=== PATIENT | female | born 1935 | race Caucasian/White ===

== ENCOUNTER 2016-07-10 11:06 | Emergency (ER) | payer MEDICARE, BC ==
[2016-07-10] MEDS ORDERED: Ketorolac 60 MG/2 ML SDV IM ONE (11:25)
--- NOTE | 2016-07-10 11:30 | EDM.PDOC ---
ED HPI Trauma - General Chief Complaint: Upper Extremity Injury/Pain Stated Complaint: BROKEN WRIST Time Seen by Provider: 07/10/16 11:20 Source: Reports: Patient, Family History Limitations: Reports: No limitations - History of Present Illness INITIAL COMMENTS - FREE TEXT/NARRATIVE: History of present illness: [81-year-old female presenting with acute onset wrist pain secondary to mechanical fall while attempting to walk on treadmill and connect her oxygen. Indicates that when she fell she struck her wrist at an extreme angle and subsequently felt pain in that wrist.] Review of systems: As per history of present illness and below otherwise all systems reviewed and negative. Past medical history: As per history of present illness and as reviewed below otherwise noncontributory. Surgical history: As per history of present illness and as reviewed below otherwise noncontributory. Social history: No reported history of drug or alcohol abuse. Family history: As per history of present illness and as reviewed below otherwise noncontributory. Physical exam: HEENT: Atraumatic, normocephalic, pupils reactive, negative for conjunctival pallor or scleral icterus, mucous membranes moist, throat clear, neck supple, nontender, trachea midline. Lungs: Clear to auscultation, breath sounds equal bilaterally, chest nontender. Heart: S1S2, regular, negative for clicks, rubs, or JVD. Abdomen: Soft, nondistended, nontender. Negative for masses or hepatosplenomegaly. Negative for costovertebral tenderness. Pelvis: Stable nontender. Genitourinary: Deferred. Rectal: Deferred. Extremities: Left forearm and wrist with slight deformity and edema noted, negative for cords or calf pain. Neurovascular unremarkable. Neuro: Awake, alert, oriented. Cranial nerves II through XII unremarkable. Cerebellum unremarkable. Motor and sensory unremarkable throughout. Exam nonfocal. Orthopedics consulted and the bedside to approximate the fracture and stabilize for followup outpatient. Diagnostics: [X. her forearm and wrist] Therapeutics: [] Impression: [Fracture the distal radial] Plan: [Ortho here and said arm with Ortho-Glass placed and followup planned with them by them as well as pain management] Definitive disposition and diagnosis as appropriate pending reevaluation and review of above. Allergies/ADRs: Allergies brimonidine tartrate [From Alphagan P] Allergy (Unverified 07/10/16 11:39) Redness Patient can't verify. potassium clavulanate [From Augmentin] Allergy (Unverified 07/10/16 11:39) Rash Patient can't recall the medicines she's allergic to. (07/10/16) Home Medications: Ambulatory Orders Furosemide 40 mg PO BID 06/10/15 [Confirmed 07/10/16] Lisinopril 40 mg PO DAILY 06/10/15 [Confirmed 07/10/16] Metoprolol Tartrate [Lopressor] 50 mg PO BID 06/10/15 [Confirmed 07/10/16] Multivit-Min/FA/Lycopene/Lut [Centrum Silver Tablet] 1 tab PO DAILY 06/10/15 [ Confirmed 07/10/16] Potassium Chloride 20 meq DAILY 06/10/15 [Confirmed 06/10/15] Rosuvastatin [Crestor] 20 mg PO BEDTIME 06/10/15 [Confirmed 07/10/16] Sertraline [Zoloft] 50 mg PO DAILY 06/10/15 [Confirmed 07/10/16] Spironolactone [Aldactone] 25 mg PO DAILY 06/10/15 [Confirmed 07/10/16] Warfarin [Coumadin] 2.5 mg PO SUMOWETHFRSA@1800 06/10/15 [Confirmed 07/10/16] Warfarin [Coumadin] 3.75 mg PO TU@1800 06/10/15 [Confirmed 07/10/16] cycloSPORINE [Cyclosporine] 1 drop EYEBOTH Q12H 06/10/15 [Confirmed 07/10/16] Acetaminophen/HYDROcodone [[place] 325-5 MG] 1 - 2 tab PO Q4H PRN #60 tablet 07/10 Amoxicillin [IMW: Amoxicillin] 2,000 mg PO ONETIME PRN 07/10/16 [Confirmed 07/10] Latanoprost [Xalatan 0.005% Ophth Soln] 1 drop EYEBOTH BEDTIME 07/10/16 [ Confirmed 07/10/16] Spironolactone [Aldactone] 25 mg PO DAILY 07/10/16 [Confirmed 07/10/16] Past Medical History Cardiovascular History: Reports: Heart Failure, Heart valve replacement, High cholesterol, Hypertension, Pulmonary hypertension, Stents Respiratory History: Reports: Bronchitis, recurrent, SOB Gastrointestinal History: Reports: GI bleed 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) Other OB/BYN History: total hysterectomy Musculoskeletal History: Reports: Fracture, Osteoarthritis Neurological History: Reports: None Psychiatric History: Reports: Depression Endocrine/Metabolic History: Reports: Diabetes, type II Hematologic History: Reports: None Immunologic History: Reports: None Oncologic (Cancer) History: Reports: None - Past Surgical History Head Surgeries/Procedures: Reports: None HEENT Surgical History: Reports: Cataract surgery, Eye surgery, Naso-sinus surgery Other HEENT Surgeries/Procedures: bilateral corneal transplants Cardiovascular Surgical History: Reports: Coronary artery bypass, Pacer, Valve replacement GI Surgical History: Reports: Colonoscopy, Polypectomy, Other (see below) Other GI Surgeries/Procedures: endoscopy with clip placement Female Surgical History: Reports: Hysterectomy, Salpingo-oophorectomy Musculoskeletal Surgical History: Reports: Carpal tunnel, Other (see below) Other Musculoskeletal Surgeries/Procedures:: anklr fx surgery Social & Family History - Tobacco Use Smoking Status *Q: Never Smoker Second Hand Smoke Exposure: No - Recreational Drug Use Recreational Drug Use: No Review of Systems - Review of Systems Review Of Systems: See Below (See history of present illness) Trauma Exam - Physical Exam Exam: See Below (See history of present illness) Course - Vital Signs Last Recorded V/S: Last Vital Signs Temp 36.6 C 07/10/16 11:17 Pulse 77 07/10/16 11:17 Resp 20 07/10/16 11:17 BP 167/79 H 07/10/16 11:17 Pulse Ox 96 07/10/16 11:17 - Orders/Labs/Meds Orders: Active Orders 24 hr Category Date Time Status Ready for Discharge [RC] PER UNIT ROUTINE Care 07/10/16 13:15 Active Meds: Medications Discontinued Medications Generic Name Dose Route Start Last Admin Trade Name Irina PRN Reason Stop Dose Admin Ketorolac Tromethamine 60 mg 07/10/16 11:25 07/10/16 11:41 Toradol IM 07/10/16 11:26 60 mg ONETIME ONE Administration Lidocaine HCl 20 ml 07/10/16 12:29 07/10/16 12:37 Xylocaine 1% INJECT 07/10/16 12:30 20 ml ONETIME ONE Administration Departure - Departure Time of Disposition: 13:20 Disposition: Home, Self-Care 01 Condition: good Clinical Impression: Radial head fracture, closed Prescriptions: Acetaminophen/HYDROcodone [[place] 325-5 MG] 1 - 2 tab PO Q4H PRN #60 tablet PRN Reason: Pain Referrals: Rober Caballero PA-C [Physician Preschool Aide] - 07/14/16 9:30 am (If you have questions or concerns prior to your follow-up appointment, please call Dr. Desir 's office. If questions or concerns arise over the weekend, please return to the ED. ) Forms: ED Department Discharge Additional Instructions: The following information is given to patients seen in the emergency department who are being discharged to home. This information is to outline your options for follow-up care. We provide all patients seen in our emergency department with a follow-up referral. The need for follow-up, as well as the timing and circumstances, are variable depending upon the specifics of your emergency department visit. If you don't have a primary care physician on staff, we will provide you with a referral. We always advise you to contact your personal physician following an emergency department visit to inform them of the circumstance of the visit and for follow-up with them and/or the need for any referrals to a consulting specialist. The emergency department will also refer you to a specialist when appropriate. This referral assures that you have the opportunity for follow-up care with a specialist. All of these measure are taken in an effort to provide you with optimal care, which includes your follow-up. Under all circumstances we always encourage you to contact your private physician who remains a resource for coordinating your care. When calling for follow-up care, please make the office aware that this follow-up is from your recent emergency room visit. If for any reason you are refused follow-up, please contact the [facility] Emergency Department at and asked to speak to the emergency department charge nurse. Take medication as directed Followup with orthopedics as arty established with them Return to ED as needed as discussed
--- NOTE | 2016-07-10 11:50 | CR ---
EXAMINATION: Left hand and left forearm HISTORY: Pain COMPARISON: None TECHNIQUE: 2 views of the left hand and 2 views of the left forearm FINDINGS: There is a comminuted impacted distal left radius fracture identified with moderate apex v olar angulation. The carpal alignment appears preserved. There is an adjacent mildly displaced ulnar styloid fracture. Bone mineralization appears mildly osteopenic. No elbow joint effusion. IMPRESSION: 1. Comminuted and moderately displaced and impacted distal left radius fracture. 2. Although metastatic fracture.
[2016-07-10] MEDS ORDERED: Lidocaine 1% 20 ML MDV INJECT ONE (12:29)
--- NOTE | 2016-07-10 12:34 | PCM.CONS ---
H&P History of Present Illness - General Date of Service: 07/10/16 Admit Problem/Dx: left displaced distal radius fracture, ulnar styloid fracture History Limitations: Reports: No limitations - History of Present Illness Initial Comments - Free Text/Narative: Patient is an 81-year-old right hand dominant female who presented to the ER earlier today with complaint of left wrist pain. She had been walking on her treadmill and while trying to place her nasal cannula, had a fall onto her left upper extremity. She had immediate pain and deformity. She has a history of left carpal tunnel syndrome, s/p open carpal tunnel release, but no previous history of left wrist fracture. She is in her usual state of health today. She did not striker her head or lose consciousness. She denies distal paralysis and paresthesias. Onset of Symptoms: Reports: today Location: Reports: lower extremity, left Quality: Reports: Stabbing Improves with: Reports: Immobilization Worsens with: Reports: Movement Context: Reports: activity/exercise, trauma Associated Symptoms: Reports: no other symptoms left forearm, wrist Pain Score (Numeric/FACES): 10 - Related Data Allergies/Adverse Reactions: Allergies Allergy/AdvReac Type Severity Reaction Status Date / Time brimonidine tartrate Allergy Redness Unverified 07/10/16 11:39 [From Alphagan P] potassium clavulanate Allergy Rash Unverified 07/10/16 11:39 [From Augmentin] Home Medications: Home Meds Furosemide 40 mg PO BID 06/10/15 [History] Lisinopril 40 mg PO DAILY 06/10/15 [History] Metoprolol Tartrate [Lopressor] 50 mg PO BID 06/10/15 [History] Multivit-Min/FA/Lycopene/Lut [Centrum Silver Tablet] 1 tab PO DAILY 06/10/15 [ History] Potassium Chloride 20 meq DAILY 06/10/15 [History] Rosuvastatin [Crestor] 20 mg PO BEDTIME 06/10/15 [History] Sertraline [Zoloft] 50 mg PO DAILY 06/10/15 [History] Spironolactone [Aldactone] 25 mg PO DAILY 06/10/15 [History] Warfarin [Coumadin] 2.5 mg PO SUMOWETHFRSA@1800 06/10/15 [History] Warfarin [Coumadin] 3.75 mg PO TU@1800 06/10/15 [History] cycloSPORINE [Cyclosporine] 1 drop EYEBOTH Q12H 06/10/15 [History] Amoxicillin [IMW: Amoxicillin] 2,000 mg PO ONETIME PRN 07/10/16 [History] Latanoprost [Xalatan 0.005% Ophth Soln] 1 drop EYEBOTH BEDTIME 07/10/16 [History ] Spironolactone [Aldactone] 25 mg PO DAILY 07/10/16 [History] Past Medical History HEENT History: Reports: Hard of hearing, Impaired vision Cardiovascular History: Reports: Heart Failure, Heart valve replacement, High cholesterol, Hypertension, Pulmonary hypertension, Stents Respiratory History: Reports: Bronchitis, recurrent, SOB Gastrointestinal History: Reports: GI bleed 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) Other OB/BYN History: total hysterectomy Musculoskeletal History: Reports: Fracture, Osteoarthritis Neurological History: Reports: None Psychiatric History: Reports: Depression Endocrine/Metabolic History: Reports: Diabetes, type II Hematologic History: Reports: None Immunologic History: Reports: None Oncologic (Cancer) History: Reports: None - Past Surgical History Head Surgeries/Procedures: Reports: None HEENT Surgical History: Reports: Cataract surgery, Eye surgery, Naso-sinus surgery Other HEENT Surgeries/Procedures: bilateral corneal transplants Cardiovascular Surgical History: Reports: Coronary artery bypass, Pacer, Valve replacement GI Surgical History: Reports: Colonoscopy, Polypectomy, Other (see below) Other GI Surgeries/Procedures: endoscopy with clip placement Female Surgical History: Reports: Hysterectomy, Salpingo-oophorectomy Musculoskeletal Surgical History: Reports: Carpal tunnel, Other (see below) Other Musculoskeletal Surgeries/Procedures:: anklr fx surgery Social & Family History - Family History Family Medical History: Noncontributory - Tobacco Use Smoking Status *Q: Never Smoker Second Hand Smoke Exposure: No - Caffeine Use Caffeine Use: Reports: Coffee, Tea - Recreational Drug Use Recreational Drug Use: No H&P Review of Systems - Review of Systems: Review Of Systems: See Below General: Reports: no symptoms. Denies: fever, chills, malaise HEENT: Reports: no symptoms Pulmonary: Reports: No Symptoms. Denies: Shortness of Breath, Cough Cardiovascular: Reports: no symptoms. Denies: chest pain, palpitations Gastrointestinal: Reports: No symptoms Genitourinary: Reports: no symptoms Musculoskeletal: Reports: arm pain Skin: Reports: no symptoms Psychiatric: Reports: no symptoms Neurological: Reports: No Symptoms Hematologic/Lymphatic: Reports: no symptoms Immunologic: Reports: no symptoms Exam - Exam Exam: See Below - Vital Signs Vital Signs: Last Vital Signs Temp 97.8 F 07/10/16 11:17 Pulse 77 07/10/16 11:17 Resp 20 07/10/16 11:17 BP 167/79 H 07/10/16 11:17 Pulse Ox 96 07/10/16 11:17 Weight: 85.4 kg - Exam Quality Assessment: supplemental oxygen General: alert, oriented HEENT: Conjunctiva clear, Mucosa moist & pink, Nares patent, Pupils equal Neck: supple Cardiovascular: regular rate, regular rhythm Extremities: other (LUE with dorsal deformity of distal forearm/wrist. ecchymosis to the ulnar/volar aspect of the wrist, FROM at L elbow. ROM at L wrist deferred due to x-ray findings. AIN, PIN, ulnar motor intact, radial/ulnar /median sensation intact, radial pulse 2+. ) Skin: warm, dry, intact - Patient Data Imaging Impressions last 24 hrs: 3V of L hand and 2V of L forearm done in ED reveal displaced distal radius fracture and ulnar styloid fracture. Consult PN Assessment/Plan Procedures: Procedures COMPLETE CBC W/AUTO DIFF WBC (06/10/15) EMERGENCY DEPT VISIT (06/10/15) LIPID PANEL (11/20/15) OCCULT BLD FECES 1-3 TESTS (06/10/15) PROTHROMBIN TIME (06/10/15) ROUTINE VENIPUNCTURE (11/20/15) X-RAY EXAM OF ABDOMEN (06/10/15) Problem List Initiated/Reviewed/Updated: Yes Plan: assessment: L distal radius fracture, displaced L ulnar styloid fracture Patient's x-rays were reviewed with Dr. Earle Desir. She recommends closed reduction prior to discharge from the ED. X-ray findings were discussed with the patient and her . Recommendation for closed reduction left distal radius was discussed. Patient agreed to proceed. Informed consent was obtained. The fracture step-off was identified. Approximately 6mL of 1% lidocaine was administered at the fracture site. Flash of blood was noted with aspiration. After adequate anesthesia was obtained, traction was held and the fracture was reduced without difficulty. A clunk was appreciated. Patient did note improved pain after closed reduction. Sugar tong splint was applied. Post-reduction x- rays using mini C-arm showed improved position of the fracture. Sling was provided to the patient. She has been instructed on rest, ice, and elevation. Patient will be discharged with [place] 5/325 for pain. Follow-up on July 14 at 9:30 with Debra Caballero PA-C.
[2016-07-10 14:00] VITALS: BP 135/77
--- NOTE | 2016-07-10 14:04 | CT ---
EXAMINATION: CT left wrist HISTORY: Post reduction COMPARISON: Radiographs are considered. TECHNIQUE: Axial CT images obtained through the left wrist without contrast. Coronal and sagittal re constructions obtained. FINDINGS: The comminuted distal radius fracture overall appears reduced. There is however prominent separation of fragments at the articular surface leaving at least a 1 cm gap with a step-off. Other chauhan the radiocarpal alignment appears preserved. The ulnar styloid fracture is now minimally displa jenise. Bone mineralization appears osteopenic. There is adjacent soft tissue swelling. Moderate degene rative changes are noted at the first CMC joint. IMPRESSION: 1. Reduced distal radius fracture, however there is notable fragment separation at the articular clayton face. 2. Minimally displaced ulnar styloid fracture. 3. Moderate degenerative changes at the first CMC joint.
--- NOTE | 2016-07-10 14:56 | CR ---
EXAMINATION: Left wrist HISTORY: Fracture COMPARISON: Same day TECHNIQUE: 2 fluoroscopic images FINDINGS/IMPRESSION: Post reduction films demonstrate a comminuted distal radius fracture and better alignment with overlying cast material. Mildly displaced ulnar styloid fracture is again noted.
== END 2016-07-10 13:55 | disposition home or self-care (01) ==
LOC: MW.ED 11:06
DX: S52.502A Unspecified fracture of the lower end of left radius, initial encounter for closed fracture (principal); I11.0 Hypertensive heart disease with heart failure; I50.9 Heart failure, unspecified; F32.9 Major depressive disorder, single episode, unspecified; E78.00 Pure hypercholesterolemia, unspecified; E11.9 Type 2 diabetes mellitus without complications; W19.XXXA Unspecified fall, initial encounter; Y93.A1 Activity, exercise machines primarily for cardiorespiratory conditioning; Z79.899 Other long term (current) drug therapy
CPT/HCPCS: 73090; 73120; 73200; 76000; 96372; 99284; A4566; J1885; 99283

== ENCOUNTER → 2016-07-14 | Outpatient (CLI) | payer MEDICARE, BC ==
--- NOTE | 2016-07-16 13:07 | CR ---
EXAM DATE: 07/14/16 PATIENT'S AGE: 81 Patient: ELMO FLOREZ Facility: [place], [place] Site . Site : [id number] Study: XRay Extremity Left Wrist [id number]/[id number] 2:47:40 PM Ordering Physician: Federico Richter Pa-C Final Report: HISTORY: Pain. Findings: Two views of the left wrist demonstrate overlying cast which obscures fine bony detail. There is a comminuted intra-articular fracture of the distal radius. No definite ulnar fracture is seen. There is normal alignment of the carpals. Impression: 1. Fine bony detail obscured by overlying cast. 2. Comminuted intra-articular distal radial fracture. Dictated by Amelia Lennon MD @ Jul 15 2016 9:43PM (Electronic Signature) Report Signed by Proxy. REJI
== END ==
LOC: MW.CHORTHO 07:45
PROVIDERS: ATTEND Physician Assistant
DX: M25.532 Pain in left wrist (principal); S52.572A Other intraarticular fracture of lower end of left radius, initial encounter for closed fracture
CPT/HCPCS: 73100-26-LT; 73100-LT

== ENCOUNTER → 2016-07-21 | Outpatient (CLI) | payer MEDICARE, BC ==
--- NOTE | 2016-07-21 13:07 | CR ---
EXAMINATION: Left wrist HISTORY: Fracture COMPARISON: 07/14/2016 TECHNIQUE: 2 views FINDINGS: There is a stable impacted and comminuted distal radius fracture identified with intra-art icular extension. There is also a stable mildly displaced ulnar styloid fracture. Moderate degenerat ever changes noted at the first CMC joint. Bone mineralization appears osteopenic. IMPRESSION: 1. Grossly stable distal radius and ulna styloid fractures. 2. Moderate degenerative changes noted at the first CMC joint.
== END ==
LOC: MW.CHORTHO 07:39
PROVIDERS: ATTEND Physician Assistant
DX: S52.502A Unspecified fracture of the lower end of left radius, initial encounter for closed fracture (principal); S52.502D Unspecified fracture of the lower end of left radius, subsequent encounter for closed fracture with routine healing; S52.612D Displaced fracture of left ulna styloid process, subsequent encounter for closed fracture with routine healing
CPT/HCPCS: 29075; 73100-26-LT; 73100-LT